=== PATIENT | male | born 1990 | race Caucasian/White ===

== ENCOUNTER 2020-06-26 09:12 | Emergency (ER) | payer OTHER ==
--- NOTE | 2020-06-26 09:54 | TELE ---
HPI Do you have fever,cough or shortness of breath?: No - General Reason For Visit: COVID 19 TEST History Source: Patient Past History - Travel History Traveled outside of the country in the last 30 days: No Close contact w/someone who was outside of country & ill: No Review of Systems - Review of Systems Able to Perform ROS?: Yes Comments:: 06/26/20 09:53 CONSTITUTIONAL: Absent: fever, chills, diaphoresis, generalized weakness, malaise, loss of appetite HEENT: Absent: rhinorrhea, nasal congestion, throat pain, throat swelling, difficulty swallowing, mouth swelling, ear pain, eye pain, visual Changes CARDIOVASCULAR: Absent: chest pain, loss of consciousness, palpitations, irregular heart rate, peripheral edema RESPIRATORY: Absent: cough, shortness of breath, dyspnea with exertion, orthopnea, wheezing, stridor, hemoptysis GASTROINTESTINAL: Absent: abdominal pain, abdominal distension, nausea, vomiting, diarrhea, constipation, melena, hematochezia SKIN: Absent: rash, itching, pallor NEUROLOGIC: Absent: headache, focal weakness or paresthesias, dizziness, unsteady gait, seizure, mental status changes, bladder or bowel incontinence PSYCHIATRIC: Absent: anxiety, depression, suicidal or homicidal ideation, hallucinations. Limited Fijian proficient: No *Physical Exam - Physical Exam 06/26/20 09:54 GENERAL: Well developed, well nourished. Awake and alert. No acute distress. PULMONARY: No evidence of respiratory distress. NEUROLOGICAL: Alert, awake, appropriate. PSYCHIATRIC: Cooperative. Good eye contact. Appropriate mood and affect. - Medical Decision Making 06/26/20 09:55 Patient is a 29-year-old male no past medical history who presents to [facility] for a COVID test. He states he is going away for the weekend with his friends and they are all getting tested prior to travel. He denies any current COVID symptoms and states that he feels well at this time. A/P: Need for COVID testing Physical exam limited as the video aspect of [employer] was not working. Visit conducted over the phone. Patient in no acute distress over the phone COVID swab ordered and instructed patient to go to [facility] for testing. Discharge Diagnosis at time of Disposition: Counseled about COVID-19 virus infection - Referrals - Patient Instructions Discharge Instructions: [facility] COVID-19 Isolation Protocol
== END 2020-06-26 09:56 | disposition home or self-care (01) ==
LOC: JVIRT 09:12
DX: Z11.59 Encounter for screening for other viral diseases (principal)
CPT/HCPCS: Q3014-GT; U0003

== ENCOUNTER 2020-07-19 09:37 | Emergency (ER) | payer OTHER ==
--- NOTE | 2020-07-19 10:12 | TELE ---
HPI Do you have fever,cough or shortness of breath?: Yes - General Reason For Visit: COVID TEST Time Seen by Provider: 07/19/20 10:09 History Source: Patient Exam Limitations: Clinical Condition - History of Present Illness Timing/Duration: unsure Associated Symptoms: reports: denies symptoms 07/19/20 10:09 Patient with no significant past medical history presented to virtual urgent care for COVID testing for travel to [place]. Patient denies any symptoms at this time. Patient report COVID testing is required for travel to [place] and patient traveling to [place] next week. Denies any other symptoms Review of Systems - Review of Systems Able to Perform ROS?: Yes Limited Somali proficient: No Constitutional: No: Chills, Fever, Malaise HEENTM: No: Symptoms Reported, See HPI, Eye Pain, Blurred Vision, Tearing, Re cent change in vision, Double Vision, Cataracts, Ear Pain, Ocular Prothesis, Ear Discharge, Nose Pain, Nose Congestion, Tinnitus, Nose Bleeding, Hearing Loss, Throat Pain, Throat Swelling, Mouth Pain, Dental Problems, Difficulty Swallowing, Mouth Swelling, Other Respiratory: No: Symptoms reported, See HPI, Cough, Orthopnea, Shortness of Breath, SOB with Exertion, SOB at Rest, Stridor, Wheezing, Productive cough, Hemoptysis, Other Cardiac (ROS): No: Symptoms Reported, See HPI, Chest Pain, Edema, Irregular Heart Rate, Lightheadedness, Palpitations, Syncope, Chest Tightness, Other ABD/GI: No: Symptoms Reported, Nausea, Vomiting Musculoskeletal: No: Symptoms Reported Integumentary: No: Symptoms Reported, Rash Neurological: No: Symptoms reported, Ataxia All Other Systems: Reviewed and Negative *Physical Exam - Physical Exam General Appearance: Yes: Nourished, Appropriately Dressed. No: Apparent Distress HEENT: positive: Normal ENT Inspection Respiratory/Chest: negative: Respiratory Distress, Accessory Muscle Use Musculoskeletal: positive: Normal Inspection Extremity: positive: Normal Inspection, Normal Range of Motion Integumentary: positive: Normal Color Neurologic: positive: Fully Oriented, Alert, Normal Mood/Affect, Normal Response, Motor Strength 5/5 - Medical Decision Making 07/19/20 10:09 Patient with no significant past medical history presented to virtual urgent care for COVID testing for travel to [place]. Patient denies any symptoms at this time. Patient report COVID testing is required for travel to [place] and patient traveling to [place] next week. Denies any other symptoms Patient is symptomatic at this time and afebrile. COVID testing order placed as per patient's request. Patient to go to [email or web address] testing center today for COVID testing. Patient stable for discharge Discharge Diagnosis at time of Disposition: Counseled about COVID-19 virus infection - Referrals - Patient Instructions - Discharge Disposition: HOME Condition at time of Disposition: Stable
== END 2020-07-19 10:12 | disposition home or self-care (01) ==
LOC: JVIRT 09:37
DX: Z11.59 Encounter for screening for other viral diseases (principal)
CPT/HCPCS: Q3014-GT; U0003

== ENCOUNTER 2020-08-29 13:21 | Emergency (ER) | payer OTHER | END 2020-08-29 13:35 | disposition home or self-care (01) | LOC: JVIRT 13:21 | DX: U07.1 COVID-19 (principal) | CPT/HCPCS: C9803; G2012-GT; U0003 ==